=== PATIENT | female | born 1995 | race Caucasian/White ===

== ENCOUNTER 2018-07-02 07:59 | Outpatient (CLI) | payer BC, SELFPAY ==
[2018-07-03 12:18] LABS: Lyme Ab w Rflx to Lyme Confirm Negative
== END 2018-07-02 08:19 ==
PROVIDERS: PCP Family Medicine; Visit Provider Family Medicine
DX: R21 Rash and other nonspecific skin eruption (principal)
CPT/HCPCS: 36415; 86618

== ENCOUNTER 2020-04-26 16:59 | Outpatient (REF) | payer OTHER, SELFPAY ==
[2020-04-29 12:48] LABS: Chlamydia Result Negative (Negative); GC Result Negative (Negative)
== END 2020-04-26 17:19 ==
LOC: LBN 16:59
PROVIDERS: PCP Family Medicine; Visit Provider Family Medicine
DX: Z11.3 Encounter for screening for infections with a predominantly sexual mode of transmission (principal)
CPT/HCPCS: 87491; 87591

== ENCOUNTER 2020-04-29 01:59 | Outpatient (CLI) | payer OTHER, SELFPAY ==
[2020-04-29 07:49] LABS: Abs Immature Grans 0.01 k/cumm (0.0-0.09); Absolute Basophil Count 0.03 k/cumm (0.0-0.2); Absolute Eosinophil Count 0.13 k/cumm (0.0-0.7); Absolute Lymphocyte Count 3.09 k/cumm (1.2-3.4); Absolute Monocyte Count 0.44 k/cumm (0.11-0.7); Absolute Neutrophil Count 2.26 k/cumm (1.2-6.7); Basophils % 0.5; Eosinophils % 2.2; HCT 40.3 % (36.0-46.0); HGB 13.1 g/dL (12.0-15.5); Immature Grans % 0.2 %; Lymphocytes % 51.8; Mean Corp. HGB Concentration 32.5 g/dL (32.0-36.0); Mean Corpuscular Hemoglobin 29.6 pg (27.0-33.0); Mean Platelet Volume 9.4 fL (8.0-11.0); Monocytes % 7.4; Neutrophils % 37.9; Platelet Count 232 x1000/uL (130-400); RBC 4.43 m/cumm (4.00-5.20); RBC Distribution Width 11.9 % (11.7-14.6); White Blood Cell Count 5.96 k/cumm (4.4-10.8)
[2020-04-29 08:24] LABS: Diff Comment Diff Reviewed; RBC Morphology Normal
[2020-04-29 09:10] LABS: Iron 91 ug/dL (50-170); Total Iron Binding Capacity 331 ug/dL (250-450); Transferrin Sat 27 % (15-50)
[2020-04-29 09:23] LABS: Ferritin 30 ng/mL (8-252)
[2020-04-30 11:56] LABS: HIV-1/2 Ag & Ab Screen Negative (Negative)
== END 2020-04-29 02:19 ==
PROVIDERS: PCP Family Medicine; Visit Provider Family Medicine
DX: Z86.2 Personal history of diseases of the blood and blood-forming organs and certain disorders involving the immune mechanism (principal); Z11.4 Encounter for screening for human immunodeficiency virus [HIV]; R19.7 Diarrhea, unspecified
CPT/HCPCS: 36415; 87389; 82728; 83540; 83550; 85025; 87177

== ENCOUNTER 2020-06-01 08:29 | Outpatient (CLI) | payer OTHER, SELFPAY ==
[2020-06-02 22:25] LABS: SARS-CoV-2 RNA Undetected (Undetected); SARS-CoV-2 Specimen Source Nasopharynx
== END 2020-06-01 08:49 ==
PROVIDERS: PCP Family Medicine; Visit Provider Family Medicine
DX: Z11.59 Encounter for screening for other viral diseases (principal)
CPT/HCPCS: U0003